=== PATIENT | male | born 1975 | race Caucasian/White ===

== ENCOUNTER → 2019-01-12 | Outpatient (CLI) | payer BC ==
--- NOTE | 2019-01-12 10:31 | PCVCIMAG ---
APPROVED REPORT Laterality: Bilateral Patient Location: Out-Patient Indications Dizziness and Vertigo Doppler Spectral Velocity Analysis PSV / EDVPSV / EDV ECA (R) 92 / 25 cm/sECA (L) 124 / 30 cm/s dICA (R) 53 / 26 cm/sdICA (L) 57 / 27 cm/s Bhavin (R) 72 / 26 cm/smICA (L) 62 / 26 cm/s pICA (R) 62 / 25 cm/spICA (L) 89 / 18 cm/s Bulb (R) 133 / 37 cm/sBulb (L) 126 / 39 cm/s dCCA (R) 161 / 35 cm/sdCCA (L) 157 / 34 cm/s mCCA (R) 157 / 39 cm/smCCA (L) 150 / 39 cm/s Vert (R) 51 / 16 cm/sVert (L) 52 / 19 cm/s ICA/CCA 0.45 ICA/CCA 0.57 Findings The right carotid bulb has no significant plaque. The right proximal internal carotid artery shows no significant stenosis. The right common carotid artery shows no significant stenosis. The right external carotid artery shows no significant stenosis. The left carotid bulb has no significant plaque. The left proximal internal carotid artery shows no significant stenosis. The left common carotid artery shows no significant stenosis. The left external carotid artery shows no significant stenosis. Conclusion 1. No significant stenosis involving either carotid artery. 2. Antegrade vertebral flow.
== END | disposition home or self-care (01) ==
LOC: PCVCIMAG 09:31
PROVIDERS: ATTEND Internal Medicine Cardiovascular Disease
DX: H53.9 Unspecified visual disturbance (principal); R42 Dizziness and giddiness
CPT/HCPCS: 93880

== ENCOUNTER → 2019-02-02 | Outpatient (CLI) | payer BC ==
--- NOTE | 2019-02-02 12:38 | PCVCIMAG ---
APPROVED REPORT Study performed: 02/02/2019 10:52:11 EXAM: Comprehensive 2D, Doppler, and color-flow Echocardiogram Patient Location: Echo lab Status: routine BSA: 2.97 HR: 60 bpmBP: 142/96 mmHg Rhythm: NSR Other Information Study Quality: Adequate Technically limited study due to body habitus. Indications Congestive Heart Failure Cardiomyopathy hx SVT 2D Dimensions IVSd: 15.20 (7-11mm) LVDd: 55.23 mm PWd: 13.78 (7-11mm)Ascending Ao: 34.43 (22-36mm) LVDs: 42.57 (25-40mm) Left Atrium: 48.39 (27-40mm) Aortic Root: 33.88 mm LV Single Plane 4CH: 42.57 % LV Single Plane 2CH: 45.42 % Biplane EF: 44.3 % Volumes Left Atrial Volume (Systole) Single Plane 4CH: 106.37 mLSingle Plane 2CH: 76.80 mL LA ESV Index: 31.00 mL/m2 Aortic Valve AoV Peak Giorgio.: 1.36 m/s AO Peak Gr.: 7.40 mmHgLVOT Max P.00 mmHg LVOT Max V: 1.00 m/s Mitral Valve E/A Ratio: 0.8 MV Decel. Time: 290.77 ms MV E Max Giorgio.: 0.60 m/s MV A Giorgio.: 0.77 m/s IVRT: 103.81 ms Pulmonary Valve PV Peak Giorgio.: 1.19 m/sPV Peak Gr.: 5.63 mmHg Pulmonary Vein P Vein S: 0.35 m/sP Vein A: 0.28 m/s P Vein D: 0.49 m/sP Vein A Dur.: 128.0 msec P Vein S/D Ratio: 0.71 Tricuspid Valve TR Peak Giorgio.: 3.19 m/s TR Peak Gr.: 40.83 mmHg TV Vmax: 0.62 m/s Left Ventricle The left ventricle is normal size. There is normal LV segmental wall motion. Moderate concentric left ventricular hypertrophy. Left ventricular systolic function is mildly decreased globally. LVEF is 45-50%. Grade I - abnormal relaxation pattern. Right Ventricle The right ventricle is normal size. The right ventricular systolic function is normal. Atria Left atrium is mildly dilated. The right atrium size is normal. Aortic Valve The aortic valve is normal in structure. No aortic regurgitation is present. There is no aortic valvular stenosis. Mitral Valve The mitral valve is normal in structure. Mild mitral regurgitation. No evidence of mitral valve stenosis. Tricuspid Valve The tricuspid valve is normal in structure. Mild tricuspid regurgitation with PAP of 51 mmHg. Pulmonic Valve The pulmonary valve is normal in structure. There is no pulmonic valvular regurgitation. Great Vessels The aortic root is normal in size. IVC is dilated and collapses >50% with inspiration. Pericardium There is no pericardial effusion. There is no pleural effusion. <Conclusion> The left ventricle is normal size. Moderate concentric left ventricular hypertrophy. Left ventricular systolic function is mildly decreased globally. LVEF is 45-50%. Grade I - abnormal relaxation pattern. The right ventricle is normal size. Left atrium is mildly dilated. The aortic valve is normal in structure. Mild mitral regurgitation. Mild tricuspid regurgitation with PAP of 51 mmHg. The aortic root is normal in size. There is no pericardial effusion.
== END | disposition home or self-care (01) ==
LOC: PCVCIMAG 11:08
PROVIDERS: ATTEND Internal Medicine Cardiovascular Disease
DX: I08.1 Rheumatic disorders of both mitral and tricuspid valves (principal); I42.9 Cardiomyopathy, unspecified; I11.0 Hypertensive heart disease with heart failure; I50.9 Heart failure, unspecified; E78.00 Pure hypercholesterolemia, unspecified; G47.33 Obstructive sleep apnea (adult) (pediatric); R00.2 Palpitations; I45.10 Unspecified right bundle-branch block; Z86.79 Personal history of other diseases of the circulatory system; Z88.8 Allergy status to other drugs, medicaments and biological substances; Z79.899 Other long term (current) drug therapy
CPT/HCPCS: 93306